=== PATIENT | female | born 2000 | race Caucasian/White ===

== ENCOUNTER 2018-12-02 02:05 | Emergency (ER) | payer SELFPAY ==
[~2018-12-02] VITALS: Ht 162.6 cm; Wt 81.9 kg
[2018-12-02 02:07] VITALS: BP 152/89
--- NOTE | 2018-12-02 02:36 | NUR ---
INITIAL CONTACT WITH PT. ASSESSMENT DONE. LABS HAVE BEEN DRAWN AND CXR DONE. PT STATES UNABLE TO GET DEEP BREATH X 1 MONTH. PT STATES OCCASSIONAL PAIN WITH RESPIRATION. INTERMITTENT COUGH.
[2018-12-02] MEDS ORDERED: ALBU0.63 NEB (02:41)
[2018-12-02 02:42] LABS: BASOPHILS # (AUTO) 0.04 x10^3/uL (0-0.3); BASOPHILS % (AUTO) 0 % (0-1); EOSINOPHILS % (AUTO) 0 % (1-7); LYMPHOCYTES # (AUTO) 2.46 x10^3/uL (1-6.1); LYMPHOCYTES % (AUTO) 20 % (22-44); MD NO; MEAN CORPUSCULAR HEMOGLOBIN 29.8 pg (27.0-34.8); MEAN CORPUSCULAR HGB CONC 34.5 g/dL (32.4-35.8); MEAN CORPUSCULAR VOLUME 86.3 fL (80-100); MEAN PLATELET VOLUME 8.4 fL (7.4-10.4); MONOCYTES # (AUTO) 0.81 x10^3/uL (0-1.4); MONOCYTES % (AUTO) 7 % (2-9); NEUTROPHILS # (AUTO) 8.88 x10^3/uL (1.8-8.0); NEUTROPHILS % (AUTO) 73 % (42-75); PLATELET COUNT 302 x10^3/uL (130-400); RED BLOOD COUNT 4.57 x10^6/uL (3.82-5.3)
[2018-12-02] MEDS ORDERED: PRED10TA PO (02:43)
[2018-12-02 02:54] LABS: ANION GAP 6 mmol/L (5-15); CALCIUM 9.1 mg/dL (8.5-10.1); CHLORIDE 109 mmol/L (98-107); CREATININE 0.77 mg/dL (0.55-1.02)
--- NOTE | 2018-12-02 03:39 | NUR ---
PT TO BE DC'D HOME. WAITING FOR DC INSTRUCTIONS.
--- NOTE | 2018-12-02 03:46 | NUR ---
PT DC'D HOME WITH UNDERSTANDING OF INSTRUCTIONS. PT AND FRIEND ESCORTED TO DC DESK.
== END 2018-12-02 03:49 | disposition home or self-care (01) ==
LOC: ED 03:41
DX: R06.00 Dyspnea, unspecified (principal); J45.909 Unspecified asthma, uncomplicated
CPT/HCPCS: 36415; 71045; 80048; 82040; 84703; 85025; 85379; 93005; 99284